=== PATIENT | male | born 1955 | race Caucasian/White ===

== ENCOUNTER 2023-06-23 12:10 | Emergency (ER) | payer OTHER ==
[~2023-06-23] VITALS: Ht 185.4 cm; Wt 122.5 kg
[2023-06-23 13:40] VITALS: BP 129/82
== END 2023-06-23 13:40 | disposition home or self-care (01) ==
LOC: ED 12:10
DX: S70.02XA Contusion of left hip, initial encounter (principal); W00.0XXA Fall on same level due to ice and snow, initial encounter; W22.8XXA Striking against or struck by other objects, initial encounter
CPT/HCPCS: 73502; 99283-25; A9270